=== PATIENT | male | born 1955 | race Caucasian/White ===

== ENCOUNTER → 2017-07-20 08:41 | Outpatient (CLI) | payer MEDICARE ==
[2011-06-12 06:24] VITALS: BMI 24.0
== END | disposition home or self-care (01) ==
LOC: D.RT 08:41
DX: R00.2 Palpitations (principal); R07.9 Chest pain, unspecified

== ENCOUNTER → 2018-10-18 14:40 | Outpatient (CLI) | payer MEDICARE ==
[2011-06-12 06:24] VITALS: BMI 24.0
== END | disposition home or self-care (01) ==
LOC: D.CT 14:40
DX: R93.89 Abnormal findings on diagnostic imaging of other specified body structures (principal)